=== PATIENT | female | born 1965 | race Caucasian/White ===

== ENCOUNTER 2018-06-23 10:41 | Day surgery (SDC) | payer BC ==
[~2018-06-23 10:41] MED LIST: Buffered Lidocaine 0.9% SYRIN* 5 ML/SYR SYRINGE INTRADERM ONE; Bupivacaine 0.5% PF 10 ML VIAL INJ ONE
[2018-06-23] MEDS ORDERED: Lidocaine 2% PF * 5 ML VIAL ONE (12:00)
[2018-06-23] MEDS ORDERED: Propofol* 10 MG/ML 20 ML BTL IV PUSH ONE (12:00)
[2018-06-23] MEDS ORDERED: fentaNYL* 50 MCG/ML 2 ML VIAL (100 MCG VIAL) ONE (12:01)
[2018-06-23] MEDS ORDERED: Ketorolac INJ* 30 MG/ML 1 ML VIAL ONE (12:16)
[2018-06-23 14:15] VITALS: BP 110/62
--- NOTE | 2018-06-25 20:52 | OP ---
OPERATIVE REPORT: DATE OF OPERATION: 06/23/18 DATE OF : 63 SURGEON: Pelon Vizcarra MD PERIPHERAL EQUIPMENT OPERATOR: LOYDA Ward ANESTHESIOLOGIST: ANESTHESIA: Local MAC. PRE-OP DIAGNOSIS: Right trigger thumb. POST-OP DIAGNOSIS: Right trigger thumb. OPERATIVE PROCEDURE: Right trigger thumb release. INDICATIONS: Yesenia has had a trigger thumb injected; it got completely better. The symptoms came pedro k after a few months. We had talked about giving her another injection versus doing a release. She had wanted to do the release. ESTIMATED BLOOD LOSS: 2 mL. COMPLICATIONS: None. FINDINGS: As expected. DESCRIPTION OF PROCEDURE: Yesenia was seen in the preoperative area. The correct side, site, and proc edure were identified. We came back to the operating room. The arm was prepped and draped in the usu al fashion and a time-out was performed. I exsanguinated the arm with the Esmarch and the tourniquet was inflated to 250 mmHg. I made a trans verse 1-cm incision in the MP joint flexion crease of the right thumb. Full-thickness flaps were rosemary ntly raised at the flexor tendon sheath. Ragnell retractors were placed. I then longitudinally incis ed the A1 momo with a 15-blade. The release was completed distally and proximally with a tenotomy scissors. Once the release was complete, there was no more catching of the tendon. The wound was irr igated out. The skin was closed with 4-0 nylon. The wounds were dressed and the tourniquet was defl ated. The thumb pinked up immediately. She was taken to the recovery room in stable condition. [id number]/[facility] #: [id number]
== END 2018-06-23 14:39 | disposition home or self-care (01) ==
LOC: OREAST 10:41
PROVIDERS: ATTEND Orthopaedic Surgery Hand Surgery
DX: M65.311 Trigger thumb, right thumb (principal)
CPT/HCPCS: J1885; J2704; J3010